=== PATIENT | male | born 1940 | race Caucasian/White ===

== ENCOUNTER 2017-08-02 17:11 | Inpatient (IN) ==
[2017-08-03] MEDS ORDERED: *HR* OxyCODONE Immed Rel 5 MG TABLET PO PRN (00:12)
[2017-08-03] MEDS ORDERED: Lidocaine 4% CREAM (LMX) 5 GM TP PRN (00:47)
[2017-08-03] MEDS: *HR* OxyCODONE Immed Rel 5 MG TABLET PO PRN ×2 (00:59→07:12)
[2017-08-03 05:36] LABS: Basophils % 0.1 %; Eosinophils % 0.2 %; Hematocrit 27.5 % (37.5-50.1); Hemoglobin 9.2 g/dL (12.9-16.9); Immature Granulocytes % 1.9 % (0-4); Lymphocytes # 1.5 K/mcL (0.6-4.6); Lymphocytes % 9.3 %; Mean Corpuscular HGB Conc 33.5 g/dL (31.6-35.5); Mean Corpuscular Hemoglobin 31.1 pg (28.0-33.3); Mean Corpuscular Volume 92.9 fL (83.0-100.0); Mean Platelet Volume 10.4 fL (9.4-12.4); Monocytes # 1.6 K/mcL (0.0-1.3); Monocytes % 9.6 %; Neutrophils # 12.9 K/mcL (1.6-8.9); Nucleated Red Blood Cells 0.3 /100 WBC (0); Platelet Count 227 K/mcL (140-400); Red Blood Count 2.96 M/mcL (4.19-5.50); Red Cell Distribution Width 15.3 % (11.5-14.5); Segmented Neutrophils % 78.9 %
[2017-08-03 05:37] LABS: INR 1.1; Prothrombin Time 11.9 Seconds (9.4-12.1)
[2017-08-03 05:40] LABS: Activated Partial Thrombo Time 38.7 Seconds (26.0-36.0)
[2017-08-03 05:47] LABS: BUN/Creatinine Ratio 31 (6-26); Blood Urea Nitrogen 35 mg/dL (8-26); Calcium 8.1 mg/dL (8.6-10.8); Carbon Dioxide 22 mEq/L (19-29); Chloride 108 mEq/L (98-109); Glucose 86 mg/dL (70-99); Osmolality,Calculated 295 (280-300); Potassium 4.3 mEq/L (3.5-4.5); Sodium 139 mEq/L (136-145); eGFR For African Americans > 60 (> 60); eGFR For Non-African Americans > 60 (> 60)
[2017-08-03] MEDS ORDERED: Cholecalciferol (D-3) 1,000 UNIT TABLET PO SCH (09:00)
[2017-08-03] MEDS ORDERED: Lidocaine 4% CREAM (LMX) 5 GM TP SCH (09:00)
[2017-08-03] MEDS ORDERED: OSCAL PO SCH (09:00)
[2017-08-03] MEDS ORDERED: VIT D PO SCH (09:00)
[2017-08-03] MEDS: Lisinopril 20 MG TABLET PO SCH (09:30)
[2017-08-03] MEDS: Sulfamethoxazole/Trimeth DS 1 EACH TABLET PO SCH (09:30)
[2017-08-03] MEDS: Celecoxib 200 MG CAPSULE PO SCH (09:30)
[2017-08-03] MEDS: Gabapentin 300 MG CAPSULE PO SCH ×3 (09:31→21:24)
[2017-08-03] MEDS: Metoprolol XL (24 HR) Succ 25 MG TAB.ER.24H PO SCH (09:31)
[2017-08-03] MEDS: predniSONE 20 MG TABLET PO SCH (09:31)
[2017-08-03] MEDS: Aspirin 81 MG TAB.CHEW PO SCH (09:31)
[2017-08-03] MEDS: Cyanocobalamin (B-12) 1,000 MCG TABLET PO SCH (09:32)
--- NOTE | 2017-08-03 14:24 | Internal Med Progress Note ---
Date of Encounter: 08/03/17 Time of Encounter: 14:17 - Assessment and plan (1) Weakness of both lower extremities Current Visit: Yes Status: Acute Assessment and plan: follow up with [facility] at . continue prednisone and gabapentin. continue PT/OT eval and treat. (2) Essential hypertension Current Visit: Yes Status: Chronic Assessment and plan: stable with current meds. 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 continue prednisone, gabapentin. will monitor progress with therapy. - Time Spent With Patient Greater than 35 minutes - Subjective Interval history: 77-year-old male patient transferred from [facility] for rehab in medical management after presenting with diffuse pain and bilateral lower extremities as well as weakness to bilateral hands. Patient states he has decrease in sensation. History of: cord compression C3 through C7, essential tremor, headache, subdural hematoma with craniotomy in 2013, lumbar fusion C-5 C6, shoulder surgery and TURP. Patient currently complaining of bilateral feet pain. Takes oxycodone as needed with minimal relief. 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 Has had one infusions so far and is supposed to have a series of 4 more one week apart. - Constitutional Vitals: Temp Pulse Resp BP Pulse Ox 97.8 F 66 16 109/70 94 08/03/17 12:27 08/03/17 13:00 08/03/17 13:00 08/03/17 13:00 08/03/17 13:00 General appearance: Present: A&O X 3, pleasant, answers questions appropriately - Head Head exam: Present: atraumatic, normocephalic - Eye Eye exam: Present: PERRL, conjuntiva pink, sclera anicteric Pupils: Present: PERRL - Neck Neck exam general surgery: Present: supple, trachea midline. Absent: lymphadenopathy - Respiratory Respiratory exam: Present: CTAB. Absent: accessory muscle use, rales, rhonchi, wheezes - Cardiovascular Cardiovascular exam: Present: RRR, +S1, +S2. Absent: diastolic murmur, gallop, rubs, systolic murmur - GI/Abdominal GI/Abdominal exam: Present: normal bowel sounds, soft, no peritoneal signs. Absent: distended, tenderness - Extremities Exam Extremities exam: Present: warm, radial pulses palpable and symmetrical. Absent : calf tenderness, cyanotic, pedal edema Additional comments: strength bilat hands 3/5, bilat lower increased pain with light touch to feet.. general weakness - Neurological Exam Neurological exam: Present: CN II-XII intact, oriented X3, no focal deficits. Absent: pronater drift, facial droop, speech deficit - Skin Skin exam: Present: dry, intact Internal Medicine: Result - Labs CBC & Chem 7: 08/03/17 05:15 08/03/17 05:15 Labs: Short CBC 08/03/17 Range/Units 05:15 WBC 16.4 H (4.3-11.1) K/mcL Hgb 9.2 L (12.9-16.9) g/dL Hct 27.5 L (37.5-50.1) % Plt Count 227 (140-400) K/mcL Neutrophils # 12.9 H (1.6-8.9) K/mcL BMP 08/03/17 05:15 Sodium 139 Potassium 4.3 Chloride 108 Carbon Dioxide 22 BUN 35 H Creatinine 1.14 Glucose 86 Calcium 8.1 L - ABG Interpretation ABG results: PT/INR, D-dimer PT 11.9 Seconds (9.4-12.1) 08/03/17 05:15 - VTE Documentation of Mechanical Device: Graduated compression elastic hosiery Consult Discharge Plan - Plan Referrals: Vinicius Prasad [Primary Care Provider] -
[2017-08-04 05:51] LABS: Basophils % 0.1 %; Eosinophils # 0.2 K/mcL (0.0-0.6); Eosinophils % 1.1 %; Hematocrit 29.5 % (37.5-50.1); Hemoglobin 9.7 g/dL (12.9-16.9); Immature Granulocytes % 1.8 % (0-4); Lymphocytes # 1.5 K/mcL (0.6-4.6); Lymphocytes % 9.8 %; Mean Corpuscular HGB Conc 32.9 g/dL (31.6-35.5); Mean Corpuscular Hemoglobin 30.9 pg (28.0-33.3); Mean Corpuscular Volume 93.9 fL (83.0-100.0); Mean Platelet Volume 10.7 fL (9.4-12.4); Monocytes # 1.3 K/mcL (0.0-1.3); Monocytes % 8.4 %; Neutrophils # 12.4 K/mcL (1.6-8.9); Nucleated Red Blood Cells 0.2 /100 WBC (0); Platelet Count 214 K/mcL (140-400); Red Blood Count 3.14 M/mcL (4.19-5.50); Red Cell Distribution Width 15.9 % (11.5-14.5); Segmented Neutrophils % 78.8 %
[2017-08-04 06:08] LABS: BUN/Creatinine Ratio 25 (6-26); Blood Urea Nitrogen 32 mg/dL (8-23); Calcium 8.3 mg/dL (8.6-10.3); Carbon Dioxide 24 mEq/L (23-29); Chloride 106 mEq/L (98-107); Glucose 82 mg/dL (70-105); Osmolality,Calculated 286 (280-300); Potassium 4.1 mEq/L (3.5-5.1); Sodium 135 mEq/L (136-145); eGFR For African Americans > 60 (> 60); eGFR For Non-African Americans 55 (> 60)
[2017-08-04] MEDS: predniSONE 20 MG TABLET PO SCH (09:18)
[2017-08-04] MEDS: Gabapentin 300 MG CAPSULE PO SCH ×3 (09:19→21:02)
[2017-08-04] MEDS: Lisinopril 20 MG TABLET PO SCH (09:21)
[2017-08-04] MEDS: Metoprolol XL (24 HR) Succ 25 MG TAB.ER.24H PO SCH (09:21)
[2017-08-04] MEDS: Celecoxib 200 MG CAPSULE PO SCH (09:21)
[2017-08-04] MEDS: Aspirin 81 MG TAB.CHEW PO SCH (09:21)
[2017-08-04] MEDS: Cholecalciferol (D-3) 1,000 UNIT TABLET PO SCH (09:21)
[2017-08-04] MEDS: *HR* OxyCODONE Immed Rel 5 MG TABLET PO PRN ×2 (09:38→16:21)
--- NOTE | 2017-08-04 11:32 | Internal Med Progress Note ---
Date of Encounter: 08/04/17 Time of Encounter: 11:30 - Assessment and plan (1) Weakness of both lower extremities Current Visit: Yes Status: Acute Assessment and plan: follow up with [facility] at . continue prednisone and gabapentin. continue PT/OT eval and treat. (2) Essential hypertension Current Visit: Yes Status: Chronic Assessment and plan: stable with current meds. 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 continue prednisone, gabapentin. will monitor progress with therapy. - Time Spent With Patient less than 15 minutes - Subjective Interval history: participating well with therapy. states pain meds effective for bilat foot pain. c/o constipation. last BM 2 days ago. denies NVD, fever or chills. requesting 1 dose of miralax. at bedside. WBC improving, possibly still elevated due to prednisone. - Constitutional Vitals: Temp Pulse Resp BP Pulse Ox 98.4 F 69 16 101/63 94 08/04/17 07:11 08/04/17 07:11 08/04/17 07:11 08/04/17 07:11 08/04/17 07:11 General appearance: Present: A&O X 3, pleasant, answers questions appropriately - Head Head exam: Present: atraumatic, normocephalic - Eye Eye exam: Present: PERRL, conjuntiva pink, sclera anicteric Pupils: Present: PERRL - Neck Neck exam general surgery: Present: supple, trachea midline. Absent: lymphadenopathy - Respiratory Respiratory exam: Present: CTAB. Absent: accessory muscle use, rales, rhonchi, wheezes - Cardiovascular Cardiovascular exam: Present: RRR, +S1, +S2. Absent: diastolic murmur, gallop, rubs, systolic murmur - GI/Abdominal GI/Abdominal exam: Present: normal bowel sounds, soft, no peritoneal signs. Absent: distended, tenderness - Extremities Exam Extremities exam: Present: warm, radial pulses palpable and symmetrical. Absent : calf tenderness, cyanotic, pedal edema Additional comments: general weakness - Neurological Exam Neurological exam: Present: CN II-XII intact, oriented X3, no focal deficits. Absent: pronater drift, facial droop, speech deficit - Skin Skin exam: Present: dry, intact Internal Medicine: Result - Labs CBC & Chem 7: 08/04/17 05:35 08/04/17 05:35 Labs: Short CBC 08/04/17 Range/Units 05:35 WBC 15.7 H (4.3-11.1) K/mcL Hgb 9.7 L (12.9-16.9) g/dL Hct 29.5 L (37.5-50.1) % Plt Count 214 (140-400) K/mcL Neutrophils # 12.4 H (1.6-8.9) K/mcL BMP 08/04/17 05:35 Sodium 135 L Potassium 4.1 Chloride 106 Carbon Dioxide 24 BUN 32 H Creatinine 1.27 Glucose 82 Calcium 8.3 L - ABG Interpretation ABG results: PT/INR, D-dimer PT 11.9 Seconds (9.4-12.1) 08/03/17 05:15 - VTE Documentation of Mechanical Device: Graduated compression elastic hosiery Consult Discharge Plan - Plan Referrals: Vinicius Prasad [Primary Care Provider] -
[2017-08-05] MEDS: Lisinopril 20 MG TABLET PO SCH (05:13)
[2017-08-05] MEDS: Celecoxib 200 MG CAPSULE PO SCH (05:13)
[2017-08-05] MEDS: Gabapentin 300 MG CAPSULE PO SCH ×3 (05:13→19:34)
[2017-08-05] MEDS: Sulfamethoxazole/Trimeth DS 1 EACH TABLET PO SCH (05:13)
[2017-08-05] MEDS: predniSONE 20 MG TABLET PO SCH (05:14)
[2017-08-05] MEDS: Aspirin 81 MG TAB.CHEW PO SCH (05:14)
[2017-08-05] MEDS: Metoprolol XL (24 HR) Succ 25 MG TAB.ER.24H PO SCH (05:14)
[2017-08-05] MEDS: Cholecalciferol (D-3) 1,000 UNIT TABLET PO SCH (05:14)
--- NOTE | 2017-08-05 13:50 | Internal Med Progress Note ---
Date of Encounter: 08/05/17 Time of Encounter: 13:45 - Constitutional Vitals: Temp Pulse Resp BP Pulse Ox 97.7 F 79 14 106/65 95 08/05/17 05:05 08/05/17 05:05 08/05/17 05:05 08/05/17 05:05 08/05/17 05:05 General appearance: Present: A&O X 3, pleasant, answers questions appropriately Internal Medicine: Result - Labs CBC & Chem 7: 08/04/17 05:35 08/04/17 05:35 - ABG Interpretation ABG results: PT/INR, D-dimer PT 11.9 Seconds (9.4-12.1) 08/03/17 05:15 - VTE Documentation of Mechanical Device: Graduated compression elastic hosiery Consult Discharge Plan - Plan Referrals: Vinicius Prasad [Primary Care Provider] -
[2017-08-06] MEDS: Aspirin 81 MG TAB.CHEW PO SCH (08:27)
[2017-08-06] MEDS: Gabapentin 300 MG CAPSULE PO SCH ×3 (08:27→21:15)
[2017-08-06] MEDS: predniSONE 20 MG TABLET PO SCH (08:27)
[2017-08-06] MEDS: Metoprolol XL (24 HR) Succ 25 MG TAB.ER.24H PO SCH (08:27)
[2017-08-06] MEDS: Celecoxib 200 MG CAPSULE PO SCH (08:28)
[2017-08-06] MEDS: Lisinopril 20 MG TABLET PO SCH (08:28)
[2017-08-06] MEDS: Cholecalciferol (D-3) 1,000 UNIT TABLET PO SCH (08:28)
--- NOTE | 2017-08-06 11:55 | Internal Med Progress Note ---
Date of Encounter: 08/06/17 Time of Encounter: 12:10 - Assessment and plan (1) Weakness of both lower extremities Current Visit: Yes Status: Acute Assessment and plan: Continuing with therapies. (2) Essential hypertension Current Visit: Yes Status: Chronic Assessment and plan: Clinically stable on current regimen. (3) Numbness and tingling of both lower extremities Current Visit: Yes Status: Acute Assessment and plan: Will continueas per rheumatology at .. (4) Wounds, multiple Current Visit: Yes Status: Acute Assessment and plan: We will simply pad and protect, cleanse daily, follow for signs of infection. I explained to patient and son that the color changes are simply "bruising" and this should slowly subside. (5) Leukocytosis Current Visit: Yes Status: Acute Assessment and plan: No signs of infection. Will Follow. Qualifiers: Qualified Code(s): D72.829 - Elevated white blood cell count, unspecified - Subjective Interval history: Patient is doing well, without complain. He has no acute issues and is concerned about the appearance of his ankle biopsy site. Denies dyspnea, chest symptoms, nausea or abdominal pain, bowel or bladder dysfunction, etc. Numbness from his neuropathy persists and he has no change. ROS is otherwise unremarkable. - Constitutional Vitals: Temp Pulse Resp BP Pulse Ox 97.6 F 82 15 106/69 96 08/06/17 08:00 08/06/17 08:26 08/06/17 08:00 08/06/17 08:26 08/06/17 08:00 General appearance: Present: A&O X 3, pleasant, answers questions appropriately - Head Head exam: Present: atraumatic, normocephalic - Eye Eye exam: Present: EOMI, PERRL, conjuntiva pink, sclera anicteric - ENT ENT exam: Present: mucous membranes moist, normal exam - Respiratory Respiratory exam: Present: CTAB. Absent: accessory muscle use - Cardiovascular Cardiovascular exam: Present: RRR. Absent: systolic murmur - GI/Abdominal GI/Abdominal exam: Present: normal bowel sounds. Absent: hepatomegaly, pulsatile mass, splenomegaly, tenderness Additional comments: He has a large, non-tender ecchymotic area at the lower abdomen. - Extremities Exam Extremities exam: Present: normal inspection. Absent: calf tenderness - Skin Additional comments: Left ankle wound, laterally, is markedly ecchymotic but no erythema and no signs of cellulits. Minimal left ischial wound looks stage II and superficial without undermining, edema or erythema to suggest infection. Left lateral chest wound has surrounding ecchymosis, as well but no erythema or edema to suggest infection. No wounds exhibit any drainage. Internal Medicine: Result - Labs CBC & Chem 7: 08/04/17 05:35 08/04/17 05:35 - ABG Interpretation ABG results: PT/INR, D-dimer PT 11.9 Seconds (9.4-12.1) 08/03/17 05:15 - VTE Documentation of Mechanical Device: Graduated compression elastic hosiery Consult Discharge Plan - Plan Referrals: Vinicius Prasad [Primary Care Provider] -
[2017-08-07 05:38] LABS: Eosinophils % 0.3 %; Hematocrit 27.4 % (37.5-50.1); Immature Granulocytes % 0.8 % (0-4); Lymphocytes # 1.3 K/mcL (0.6-4.6); Lymphocytes % 11.4 %; Mean Corpuscular HGB Conc 32.8 g/dL (31.6-35.5); Mean Corpuscular Hemoglobin 31.1 pg (28.0-33.3); Mean Corpuscular Volume 94.8 fL (83.0-100.0); Mean Platelet Volume 10.6 fL (9.4-12.4); Monocytes % 8.4 %; Platelet Count 227 K/mcL (140-400); Red Blood Count 2.89 M/mcL (4.19-5.50); Red Cell Distribution Width 16.5 % (11.5-14.5); Segmented Neutrophils % 79.1 %
[2017-08-07 05:48] LABS: Neutrophils # 9.2 K/mcL (1.6-8.9)
--- NOTE | 2017-08-07 06:27 | Internal Med Progress Note ---
Date of Encounter: 08/07/17 Time of Encounter: 06:27 - Assessment and plan (1) Weakness of both lower extremities Current Visit: Yes Status: Acute Assessment and plan: Will continue with theparies, as planned. (2) Essential hypertension Current Visit: Yes Status: Chronic Assessment and plan: Clinically stable on current regimen. (3) Numbness and tingling of both lower extremities Current Visit: Yes Status: Acute Assessment and plan: Will continue as per Rheumatology.. (4) Wounds, multiple Current Visit: Yes Status: Acute Assessment and plan: Not examined. WIll continue as planned. (5) Leukocytosis Current Visit: Yes Status: Acute Assessment and plan: No signs of infection. Improved. Qualifiers: Qualified Code(s): D72.829 - Elevated white blood cell count, unspecified - Subjective Interval history: Patient is doing wel. Sleeping upon my arrivval. Denies problems except some difficulty with urinary hesitancy. ROS is otherwise unremarkable. - Constitutional Vitals: Temp Pulse Resp BP Pulse Ox 97.7 F 67 14 100/62 95 08/06/17 20:00 08/06/17 20:00 08/06/17 20:00 08/06/17 20:00 08/06/17 20:00 General appearance: Present: A&O X 3, pleasant, answers questions appropriately - Head Head exam: Present: atraumatic, normal inspection, normocephalic - Respiratory Respiratory exam: Present: CTAB. Absent: accessory muscle use - Cardiovascular Cardiovascular exam: Present: RRR. Absent: systolic murmur - GI/Abdominal GI/Abdominal exam: Present: normal bowel sounds. Absent: hepatomegaly, splenomegaly, tenderness - Extremities Exam Extremities exam: Present: normal capillary refill, warm. Absent: calf tenderness, pedal edema - Neurological Exam Neurological exam: Present: oriented X3. Absent: facial droop, speech deficit Internal Medicine: Result - Labs CBC & Chem 7: 08/07/17 04:58 08/04/17 05:35 Labs: Short CBC 08/07/17 Range/Units 04:58 WBC 11.6 H (4.3-11.1) K/mcL Hgb 9.0 L (12.9-16.9) g/dL Hct 27.4 L (37.5-50.1) % Plt Count 227 (140-400) K/mcL Neutrophils # 9.2 H (1.6-8.9) K/mcL - ABG Interpretation ABG results: PT/INR, D-dimer PT 11.9 Seconds (9.4-12.1) 08/03/17 05:15 - VTE Documentation of Mechanical Device: Graduated compression elastic hosiery Consult Discharge Plan - Plan Referrals: Vinicius Prasad [Primary Care Provider] -
[2017-08-07] MEDS: predniSONE 20 MG TABLET PO SCH (08:24)
[2017-08-07] MEDS: Lisinopril 20 MG TABLET PO SCH (08:25)
[2017-08-07] MEDS: Cholecalciferol (D-3) 1,000 UNIT TABLET PO SCH (08:25)
[2017-08-07] MEDS: Celecoxib 200 MG CAPSULE PO SCH (08:25)
[2017-08-07] MEDS: Metoprolol XL (24 HR) Succ 25 MG TAB.ER.24H PO SCH (08:25)
[2017-08-07] MEDS: Gabapentin 300 MG CAPSULE PO SCH ×4 (08:25→22:20)
[2017-08-07] MEDS: Aspirin 81 MG TAB.CHEW PO SCH (08:25)
[2017-08-07 09:45] LABS: Bilirubin,Urine Negative (Negative); Blood,Urine Moderate (Negative); Clarity,Urine Clear (Clear); Color,Urine Yellow (Yellow); Glucose,Urine (UA) Normal (Normal); Ketones,Urine Negative (Negative); Leukocyte Esterase,Urine Negative (Negative); Nitrite,Urine Negative (Negative); PH,Urine 6.5 pH Units (5.0-8.0); Protein,Urine Negative (Neg-Trace); Specific Gravity,Urine 1.015 (1.010-1.025)
[2017-08-07 09:56] LABS: Bacteria,Urine Few per hpf (None-Few); Squamous Epithelial Cell,Urine Few per lpf (None-Few)
[2017-08-08] MEDS: Gabapentin 300 MG CAPSULE PO SCH ×3 (08:36→21:20)
[2017-08-08] MEDS: Cholecalciferol (D-3) 1,000 UNIT TABLET PO SCH (08:36)
[2017-08-08] MEDS: predniSONE 20 MG TABLET PO SCH (08:36)
[2017-08-08] MEDS: Lisinopril 20 MG TABLET PO SCH (08:37)
[2017-08-08] MEDS: Metoprolol XL (24 HR) Succ 25 MG TAB.ER.24H PO SCH (08:37)
[2017-08-08] MEDS: Sulfamethoxazole/Trimeth DS 1 EACH TABLET PO SCH (08:37)
[2017-08-08] MEDS: Celecoxib 200 MG CAPSULE PO SCH (08:37)
[2017-08-08] MEDS: Aspirin 81 MG TAB.CHEW PO SCH (08:37)
--- NOTE | 2017-08-08 11:08 | Internal Med Progress Note ---
Date of Encounter: 08/08/17 Time of Encounter: 11:06 - Assessment and plan (1) Weakness of both lower extremities Current Visit: Yes Status: Acute Assessment and plan: improving. continue PT/OT. will follow progress. (2) Essential hypertension Current Visit: Yes Status: Chronic Assessment and plan: Clinically stable on current regimen. continue to monitor BP (3) Numbness and tingling of both lower extremities Current Visit: Yes Status: Acute Assessment and plan: Will continue as per Rheumatology. - Time Spent With Patient less than 15 minutes - Subjective Interval history: participating well with therapy. ambulating in hallway with walker with therapy. denies pain. bowels moving without difficulty. no change in appetite. maintaining hydration. - Constitutional Vitals: Temp Pulse Resp BP Pulse Ox 97.4 F L 70 18 100/64 97 08/08/17 07:00 08/08/17 07:00 08/08/17 07:00 08/08/17 07:00 08/08/17 07:00 General appearance: Present: A&O X 3, pleasant, answers questions appropriately - Head Head exam: Present: atraumatic, normocephalic - Eye Eye exam: Present: PERRL, conjuntiva pink, sclera anicteric Pupils: Present: PERRL - Neck Neck exam general surgery: Present: supple, trachea midline. Absent: lymphadenopathy - Respiratory Respiratory exam: Present: CTAB. Absent: accessory muscle use, rales, rhonchi, wheezes - Cardiovascular Cardiovascular exam: Present: RRR, +S1, +S2. Absent: diastolic murmur, gallop, rubs, systolic murmur - GI/Abdominal GI/Abdominal exam: Present: normal bowel sounds, soft, no peritoneal signs. Absent: distended, tenderness - Extremities Exam Extremities exam: Present: warm, radial pulses palpable and symmetrical. Absent : calf tenderness, cyanotic, pedal edema - Neurological Exam Neurological exam: Present: CN II-XII intact, oriented X3, no focal deficits. Absent: pronater drift, facial droop, speech deficit Additional comments: general weakness. - Skin Skin exam: Present: dry, intact Internal Medicine: Result - Labs CBC & Chem 7: 08/07/17 04:58 08/04/17 05:35 - ABG Interpretation ABG results: PT/INR, D-dimer PT 11.9 Seconds (9.4-12.1) 08/03/17 05:15 - VTE Documentation of Mechanical Device: Graduated compression elastic hosiery Consult Discharge Plan - Plan Referrals: Vinicius Prasad [Primary Care Provider] -
[2017-08-08] MEDS ORDERED: MOM Conc 10 ML UD.LIQ PO SCH (21:00)
[2017-08-09] MEDS: Gabapentin 300 MG CAPSULE PO SCH ×3 (09:04→20:08)
[2017-08-09] MEDS: Aspirin 81 MG TAB.CHEW PO SCH (09:05)
[2017-08-09] MEDS: Cholecalciferol (D-3) 1,000 UNIT TABLET PO SCH (09:05)
[2017-08-09] MEDS: Metoprolol XL (24 HR) Succ 25 MG TAB.ER.24H PO SCH (09:06)
[2017-08-09] MEDS: Lisinopril 20 MG TABLET PO SCH (09:06)
[2017-08-09] MEDS: Celecoxib 200 MG CAPSULE PO SCH (09:06)
[2017-08-09] MEDS: predniSONE 20 MG TABLET PO SCH (09:12)
--- NOTE | 2017-08-09 11:27 | Internal Med Progress Note ---
Date of Encounter: 08/09/17 Time of Encounter: 11:25 - Assessment and plan (1) Weakness of both lower extremities Current Visit: Yes Status: Acute Assessment and plan: improving. continue PT/OT. will follow progress. (2) Essential hypertension Current Visit: Yes Status: Chronic Assessment and plan: stable will continue current meds. continue to monitor BP (3) Numbness and tingling of both lower extremities Current Visit: Yes Status: Acute Assessment and plan: improving. continue PT/OT - Time Spent With Patient less than 15 minutes - Subjective Interval history: continues to participate well with therapy. ambulating in hallway with walker with therapy. denies pain. bowels moving without difficulty. no change in appetite. maintaining hydration. discharge scheduled for 08/11 to home. pt states excited to go home to see his dog. - Constitutional Vitals: Temp Pulse Resp BP Pulse Ox 97.8 F 68 16 130/80 96 08/09/17 09:00 08/09/17 07:28 08/09/17 07:28 08/09/17 07:28 08/09/17 07:28 General appearance: Present: A&O X 3, pleasant, answers questions appropriately - Head Head exam: Present: atraumatic, normocephalic - Eye Eye exam: Present: PERRL, conjuntiva pink, sclera anicteric Pupils: Present: PERRL - Neck Neck exam general surgery: Present: supple, trachea midline. Absent: lymphadenopathy - Respiratory Respiratory exam: Present: CTAB. Absent: accessory muscle use, rales, rhonchi, wheezes - Cardiovascular Cardiovascular exam: Present: RRR, +S1, +S2. Absent: diastolic murmur, gallop, rubs, systolic murmur - GI/Abdominal GI/Abdominal exam: Present: normal bowel sounds, soft, no peritoneal signs. Absent: distended, tenderness - Extremities Exam Extremities exam: Present: warm, radial pulses palpable and symmetrical. Absent : calf tenderness, cyanotic, pedal edema Additional comments: general weakness - Neurological Exam Neurological exam: Present: CN II-XII intact, oriented X3, no focal deficits. Absent: pronater drift, facial droop, speech deficit - Skin Skin exam: Present: dry, intact Internal Medicine: Result - Labs CBC & Chem 7: 08/07/17 04:58 08/04/17 05:35 - ABG Interpretation ABG results: PT/INR, D-dimer PT 11.9 Seconds (9.4-12.1) 08/03/17 05:15 - VTE Documentation of Mechanical Device: Graduated compression elastic hosiery Consult Discharge Plan - Plan Referrals: Vinicius Prasad [Primary Care Provider] -
--- NOTE | 2017-08-09 14:09 | Internal Med Progress Note ---
Date of Encounter: 08/09/17 Time of Encounter: 14:07 - Subjective Interval history: Working out daily with PT OT and TR. Patient's [place] wheelchair to do basic bathing dressing and grooming. [place] wheelchair as necessary because the patient has not impaired ambulation. Loses balance and collapses suddenly went fatigued. Patient has some help at home and the caregiver can provide assistance with the wheelchair. The patient is expressed willingness to use wheelchair - Constitutional Vitals: Temp Pulse Resp BP Pulse Ox 97.8 F 68 16 130/80 96 08/09/17 09:00 08/09/17 07:28 08/09/17 07:28 08/09/17 07:28 08/09/17 07:28 General appearance: Present: A&O X 3, pleasant, answers questions appropriately - Head Head exam: Present: atraumatic, normal inspection, normocephalic - Respiratory Respiratory exam: Present: CTAB. Absent: accessory muscle use, rales, rhonchi, wheezes - Cardiovascular Cardiovascular exam: Present: RRR, +S1, +S2. Absent: diastolic murmur, gallop, rubs, systolic murmur - Neurological Exam Neurological exam: Present: abnormal gait, CN II-XII intact, motor sensory deficit, oriented X3, no focal deficits. Absent: pronater drift, facial droop, speech deficit Internal Medicine: Result - Labs CBC & Chem 7: 08/07/17 04:58 08/04/17 05:35 - ABG Interpretation ABG results: PT/INR, D-dimer PT 11.9 Seconds (9.4-12.1) 08/03/17 05:15 - VTE Documentation of Mechanical Device: Graduated compression elastic hosiery Consult Discharge Plan - Plan Referrals: Vinicius Prasad [Primary Care Provider] -
[2017-08-10] MEDS: Celecoxib 200 MG CAPSULE PO SCH (08:34)
[2017-08-10] MEDS: predniSONE 20 MG TABLET PO SCH (08:34)
[2017-08-10] MEDS: Sulfamethoxazole/Trimeth DS 1 EACH TABLET PO SCH (08:34)
[2017-08-10] MEDS: Cholecalciferol (D-3) 1,000 UNIT TABLET PO SCH (08:34)
[2017-08-10] MEDS: Gabapentin 300 MG CAPSULE PO SCH ×3 (08:34→19:40)
[2017-08-10] MEDS: Metoprolol XL (24 HR) Succ 25 MG TAB.ER.24H PO SCH (08:35)
[2017-08-10] MEDS: Aspirin 81 MG TAB.CHEW PO SCH (08:35)
[2017-08-10] MEDS: Lisinopril 20 MG TABLET PO SCH (08:35)
[2017-08-10] MEDS: Cyanocobalamin (B-12) 1,000 MCG TABLET PO SCH (08:36)
--- NOTE | 2017-08-10 11:36 | Internal Med Progress Note ---
Date of Encounter: 08/10/17 Time of Encounter: 11:34 - Assessment and plan (1) Weakness of both lower extremities Current Visit: Yes Status: Acute Assessment and plan: improving. continue PT/OT. will follow progress. (2) Essential hypertension Current Visit: Yes Status: Chronic Assessment and plan: stable will continue current meds. continue to monitor BP (3) Numbness and tingling of both lower extremities Current Visit: Yes Status: Acute Assessment and plan: improving. continue PT/OT - Time Spent With Patient less than 15 minutes - Subjective Interval history: continues to participate well with therapy. ambulating in hallway with walker with therapy. denies pain. bowels moving without difficulty. no change in appetite. maintaining hydration. discharge scheduled for tomorrow. anxious to go home. - Constitutional Vitals: Temp Pulse Resp BP Pulse Ox 97.3 F L 66 16 114/66 97 08/10/17 07:44 08/10/17 07:44 08/10/17 07:44 08/10/17 07:44 08/10/17 07:44 General appearance: Present: A&O X 3, pleasant, answers questions appropriately - Head Head exam: Present: atraumatic, normocephalic - Eye Eye exam: Present: PERRL, conjuntiva pink, sclera anicteric Pupils: Present: PERRL - Neck Neck exam general surgery: Present: supple, trachea midline. Absent: lymphadenopathy - Respiratory Respiratory exam: Present: CTAB. Absent: accessory muscle use, rales, rhonchi, wheezes - Cardiovascular Cardiovascular exam: Present: RRR, +S1, +S2. Absent: diastolic murmur, gallop, rubs, systolic murmur - GI/Abdominal GI/Abdominal exam: Present: normal bowel sounds, soft, no peritoneal signs. Absent: distended, tenderness - Extremities Exam Extremities exam: Present: warm, radial pulses palpable and symmetrical. Absent : calf tenderness, cyanotic, pedal edema Additional comments: general weakness. - Neurological Exam Neurological exam: Present: CN II-XII intact, oriented X3, no focal deficits. Absent: pronater drift, facial droop, speech deficit - Skin Skin exam: Present: dry, intact Internal Medicine: Result - Labs CBC & Chem 7: 08/07/17 04:58 08/04/17 05:35 - ABG Interpretation ABG results: PT/INR, D-dimer PT 11.9 Seconds (9.4-12.1) 08/03/17 05:15 - VTE Documentation of Mechanical Device: Graduated compression elastic hosiery Consult Discharge Plan - Plan Referrals: Vinicius Prasad [Primary Care Provider] -
--- NOTE | 2017-08-10 13:20 | Psychological Evaluation ---
<Lakeshia Franco - Last Filed: 08/10/17 13:17> Date of Encounter: 08/10/17 Time of Encounter: 11:00 History of Present Illness History of present illness: 77-year-old male patient transferred from [facility] for rehab in medical management after presenting with diffuse pain and bilateral lower extremities as well as weakness to bilateral hands. Patient states he has decrease in sensation. History of: cord compression C3 through C7, essential tremor, headache, subdural hematoma with craniotomy in 2013, lumbar fusion C-5 C6, shoulder surgery and TURP. Patient currently complaining of bilateral feet pain. Takes oxycodone as needed with minimal relief. Patient was consult it to reimbursement rep at and was recommended IV IG infusions. Has had one infusions so far and is supposed to have a series of 4 more one week apart. Past Medical History Medical history: PMH includes HTN and weakness in bilateral lower extremities Home Medications and Allergies Acetaminophen [Tylenol] 1,000 mg PO Q8HR PRN 08/02/17 [History] Aspirin 81 mg PO DAILY 08/02/17 [History] Atorvastatin Calcium [Lipitor] 20 mg PO Q48H 08/02/17 [History] Celecoxib [Celebrex] 200 mg PO DAILY 08/02/17 [History] Cyanocobalamin (Vitamin B-12) [Vitamin B12] 1,000 mcg PO Q7D 08/02/17 [History] Lisinopril [Zestril] 20 mg PO DAILY 08/02/17 [History] Omeprazole [PriLOSEC] 80 mg PO DAILY 08/02/17 [History] PredniSONE [Deltasone] 80 mg PO DAILY 08/02/17 [History] Tamsulosin [Flomax] 0.4 mg PO DAILY 08/02/17 [History] 3 Allergy/AdvReac Type Severity Reaction Status Date / Time butorphanol [From Stadol] Allergy Confusion Verified 08/02/17 22:06 codeine Allergy Gastrointestinal Verified 08/02/17 22:06 Upset Social History - Social History Social History: 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 He retired in 1993 from the [employer]. Upon [employer] the patient was an [employer]. He has two children, a son and a daughter. Cognitive/Emotional Assessment - Emotional Status Additional Findings: The patient reports what sounds like an aneurysm approximately 4 years ago. He indicated that short term memory has been impaired since that time. During clinical interview, the patient accurately reported recent and remote personal information. He was fully oriented to time, place and purpose. There was compromise in attention, short term memory and retention of new information. However, with repetition, the patient was able to demonstrate retention of new information. Plans for discharge appeared appropriate and realistic. <VigneshMandeep Chidi - Last Filed: 08/11/17 12:37> Date of Encounter: 08/11/17 History of Present Illness History of present illness: Mr. Triana is a 77 year old male who was admitted to the facility for PT/OT rehab for generalized weakness secondary to significant cervical stenosis. Patient has a history of cord compression at C3-C7. Patient continues with generalized weakness with his extremity MS at 4/5 and patient continued to be a fall risk. Patient has progressed well while this facility with his PT/OT and will continue with PT and Nx. No acute neurological changes have occurred during his facility stay. Patient denies any discomforts and shortness of breath.
[2017-08-11 07:54] VITALS: BP 135/77
[2017-08-11] MEDS: Gabapentin 300 MG CAPSULE PO SCH ×2 (08:42→15:50)
[2017-08-11] MEDS: Cholecalciferol (D-3) 1,000 UNIT TABLET PO SCH (08:43)
[2017-08-11] MEDS: Celecoxib 200 MG CAPSULE PO SCH (08:43)
[2017-08-11] MEDS: predniSONE 20 MG TABLET PO SCH (08:43)
[2017-08-11] MEDS: Aspirin 81 MG TAB.CHEW PO SCH (08:43)
[2017-08-11] MEDS: Metoprolol XL (24 HR) Succ 25 MG TAB.ER.24H PO SCH (10:35)
[2017-08-11] MEDS: Lisinopril 20 MG TABLET PO SCH (10:47)
--- NOTE | 2017-08-11 11:45 | Discharge Summary ---
Date of Encounter: 08/11/17 Time of Encounter: 12:38 - Discharge Diagnosis (1) Numbness and tingling of both lower extremities Priority: Secondary Status: Acute Comments: Patient continues with generalized weakness and paresthesias secondary to severe cervical stenosis. We will continue with current plan of care of PT with home health (2) Weakness of both lower extremities Priority: Primary Status: Acute Comments: Patient continues with generalized weakness and paresthesias secondary to severe cervical stenosis. We will continue with current plan of care of PT with home health (3) Essential hypertension Priority: Secondary Status: Chronic Comments: No acute issues. Vital signs are stable. Patient to continue with current medications well at home. - Discharge Medications Home Medications: Acetaminophen [Tylenol] 1,000 mg PO Q8HR PRN 08/02/17 [History] Aspirin 81 mg PO DAILY 08/02/17 [History] Atorvastatin Calcium [Lipitor] 20 mg PO Q48H 08/02/17 [History] Celecoxib [Celebrex] 200 mg PO DAILY 08/02/17 [History] Cyanocobalamin (Vitamin B-12) [Vitamin B12] 1,000 mcg PO Q7D 08/02/17 [History] Lisinopril [Zestril] 20 mg PO DAILY 08/02/17 [History] Omeprazole [PriLOSEC] 80 mg PO DAILY 08/02/17 [History] PredniSONE [Deltasone] 80 mg PO DAILY 08/02/17 [History] Tamsulosin [Flomax] 0.4 mg PO DAILY 08/02/17 [History] Allergies/Adverse Reactions: 3 Allergy/AdvReac Type Severity Reaction Status Date / Time butorphanol [From Stadol] Allergy Confusion Verified 08/02/17 22:06 codeine Allergy Gastrointestinal Verified 08/02/17 22:06 Upset Date of admission: 08/02/17 21:08 Primary care physician: Vinicius Prasad Consults: 08/02/17 22:02 Consult to Nutrition [CONS] Routine Comment: Consulting Provider: NUTRITION Reason for Dietary Consult: MST Score 08/03/17 00:51 Consult to Occupational Therapy [CONS] Routine Comment: Eval and treat Reason for Consult: Eval and treat Consult to Physical Therapy [CONS] Routine Comment: Eval and treat Reason for Consult: Eval and treat Consult to Recreational Therapy [CONS] Routine Comment: Consult to Mds Rn [CONS] Routine Reason for SW Consult: Eval and treat 08/09/17 14:11 Consult to Psychology [CONS] Routine Consulting Provider: Lakeshia Franco Reason for Consult: ? dementia Time Notified: 14:00 Call Completed: No Discharging clinician: Wisam Heredia Anticipated date of discharge: 08/11/17 - Patient Status Disposition: Home Health Service Condition: Good Functional capacity at discharge: uses cane/walker Overall status at discharge: patient is progressing back to baseline - Discharge Instructions Follow Up With: Vinicius Prasad [Primary Care Provider] - 08/16/17 11:00 am (follow up apointment with primary provider) - Diet and Activity Activity: ambulate only with your walker, as per physical therapy, increase activity as tolerated Diet: advance to your usual diet, low fat, low cholesterol Hospital course: Mr. Triana is a 77 year old male who was admitted to this facility for physical therapy rehabilitation due to moderate generalized weakness and paresthesia secondary to severe cervical stenosis. Patient continues to have moderate generalized weakness and remains a fall risk and will continue with physical therapy after discharge with home health. Patient's stay at facility was uneventful with no acute neurological changes noted during his admission. Patient continues to have moderate generalized weakness with MS 4/512 extremities. Patient continues to complain of generalized tingling and numb most to lower extremities. Time spent discussing smoking cessation with patient: 3 to 10 minutes - Time Spent with Patient Total time spent providing and/or coordinating discharge services: Less than 30 minutes - Constitutional Vitals: Temp Pulse Resp BP Pulse Ox 98.2 F 69 18 135/77 97 08/11/17 07:00 08/11/17 07:00 08/11/17 07:00 08/11/17 07:00 08/11/17 07:00 General appearance: Present: A&O X 3, pleasant, answers questions appropriately - Head Head exam: Present: atraumatic, normocephalic - Eye Eye exam: Present: PERRL, conjuntiva pink, sclera anicteric Pupils: Present: PERRL - Neck Neck exam general surgery: Present: supple, trachea midline. Absent: lymphadenopathy - Respiratory Respiratory exam: Present: CTAB. Absent: accessory muscle use, rales, rhonchi, wheezes - Cardiovascular Cardiovascular exam: Present: RRR, +S1, +S2. Absent: diastolic murmur, gallop, rubs, systolic murmur - GI/Abdominal GI/Abdominal exam: Present: normal bowel sounds, soft, no peritoneal signs. Absent: distended, tenderness - Extremities Exam Extremities exam: Present: warm, radial pulses palpable and symmetrical. Absent : calf tenderness, cyanotic, pedal edema - Neurological Exam Neurological exam: Present: CN II-XII intact, oriented X3. Absent: pronater drift, facial droop, speech deficit Additional comments: Patient continues to show moderate generalized weakness to lower extremities secondary to his cervical stenosis. MS 4/5 to all extremities with strength. Right greater than left slightly. Noted slight hyperreflexia to left lower extremity on exam. Positive clonus lower extremities. - Skin Skin exam: Present: dry, intact - VTE Documentation of Mechanical Device: Graduated compression elastic hosiery
--- NOTE | 2017-08-11 12:46 | Physician Discharge Referral ---
Home Health/Hosp Referral Info Transfer to: Home Health Provider in Charge Post Discharge: PCP - Diagnosis (1) Numbness and tingling of both lower extremities Priority: Secondary Status: Acute (2) Weakness of both lower extremities Priority: Primary Status: Acute (3) Essential hypertension Priority: Secondary Status: Chronic - Respiratory Orders Smoking Cessation: Smoking cessation has been advised. For more information, call the [place] Tobacco Quit Line at 0-247-GTFS-NOW. - Activity Activity Orders: Up ad jaleel, Walker - Services Needed Following services are medically necessary services: Nursing, Home Health Aide, Physical Therapy - Transfer Medications Home Medications: Acetaminophen [Tylenol] 1,000 mg PO Q8HR PRN 08/02/17 [History] Aspirin 81 mg PO DAILY 08/02/17 [History] Atorvastatin Calcium [Lipitor] 20 mg PO Q48H 08/02/17 [History] Celecoxib [Celebrex] 200 mg PO DAILY 08/02/17 [History] Cyanocobalamin (Vitamin B-12) [Vitamin B12] 1,000 mcg PO Q7D 08/02/17 [History] Lisinopril [Zestril] 20 mg PO DAILY 08/02/17 [History] Omeprazole [PriLOSEC] 80 mg PO DAILY 08/02/17 [History] PredniSONE [Deltasone] 80 mg PO DAILY 08/02/17 [History] Tamsulosin [Flomax] 0.4 mg PO DAILY 08/02/17 [History] Allergies/Adverse Reactions: 3 Allergy/AdvReac Type Severity Reaction Status Date / Time butorphanol [From Stadol] Allergy Confusion Verified 08/02/17 22:06 codeine Allergy Gastrointestinal Verified 08/02/17 22:06 Upset Certification: Further, I certify that my clinical findings support that this patient is homebound (i.e. absences from home require considerable and taxing effort and are for medical reasons or jainism services or infrequently or short duration when for other reasons) because: Homebound Reason: Patient requires assistance of a person or device to safely leave home, Leaving home requires considerable and taxing effort due to condition Attestation: My signature below is to certify that this patient is under my care and that I, or nurse practitioner, or a physician's printer's assistant working with me, has a face-to -face encounter with this patient.
== END 2017-08-11 16:05 | disposition home health service (06) | DRG 552 ==
LOC: INPGRE 21:08
PROVIDERS: ADMIT Internal Medicine; ATTEND Internal Medicine